=== PATIENT | male | born 1980 | race Caucasian/White ===

== ENCOUNTER → 2023-05-30 | Emergency (ER) | payer SELFPAY ==
--- NOTE | 2023-05-30 07:56 | EDPHYS ---
Physician Documentation [facility] Name: Corby Estevez Age: 42 yrs Sex: Male : 1980 Arrival Date: 05/30/2023 Time: 07:26 Bed DIS3 Private MD: ED Physician Meño Garza HPI: 05/30 07:59 This 42 yrs old Male presents to ER via Ambulatory with complaints of High Blood rt Pressure. 07:59 Patient presents to the ED with hypertension. Patient has been out of his amlodipine rt benazepril close blood pressure elevated. Denies chest pain, shortness of breath. Is requesting a refill. Denies other acute complaints, symptoms are moderate severity, no other aggravating or alleviating factors.. Historical: - Allergies: 07:49 No Known Allergies; jl7 - Home Meds: 07:49 amlodipine-benazepril 10-40 mg oral capsule [Active]; 7 - PMHx: 07:49 Hypertensive disorder; - PSHx: 07:49 None; jl7 - Immunization history:: Adult Immunizations unknown. - Social history:: Smoking status: Patient denies any tobacco usage or history of. - Family history:: not pertinent. ROS: 07:59 Constitutional: Negative for fever, chills, and weight loss, Cardiovascular: Negative rt for chest pain, palpitations, and edema, Respiratory: Negative for shortness of breath, cough, wheezing, and pleuritic chest pain, Abdomen/GI: Negative for abdominal pain, nausea, vomiting, diarrhea, and constipation, Skin: Negative for injury, rash, and discoloration, Neuro: Negative for headache, weakness, numbness, tingling, and seizure, Psych: Negative for depression, anxiety, suicide ideation, homicidal ideation, and hallucinations, Exam: 07:59 Constitutional: This is a well developed, well nourished patient who is awake, alert, rt and in no acute distress. Head/Face: Normocephalic, atraumatic. Chest/axilla: Normal chest wall appearance and motion. Nontender with no deformity. No lesions are appreciated. Cardiovascular: Regular rate and rhythm with a normal S1 and S2. No gallops, murmurs, or rubs. Normal PMI, no JVD. No pulse deficits. Respiratory: Lungs have equal breath sounds bilaterally, clear to auscultation and percussion. No rales, rhonchi or wheezes noted. No increased work of breathing, no retractions or nasal flaring. Abdomen/GI: Soft, non-tender, with normal bowel sounds. No distension or tympany. No guarding or rebound. No evidence of tenderness throughout. Skin: Warm, dry with normal turgor. Normal color with no rashes, no lesions, and no evidence of cellulitis. MS/ Extremity: Pulses equal, no cyanosis. Neurovascular intact. Full, normal range of motion. Neuro: Awake and alert, GCS 15, oriented to person, place, time, and situation. Cranial nerves II-XII grossly intact. Motor strength 5/5 in all extremities. Sensory grossly intact. Cerebellar exam normal. Normal gait. Vital Signs: 07:45 BP 179 / 126; Pulse 83; Resp 15; Temp 97.9; Pulse Ox 100% ; Weight 104.33 kg; Height 5 jl7 ft. 8 in. ; Pain 0/10; 07:45 Body Mass Index 34.97 (104.33 kg, 172.72 cm) jl7 07:45 Pain Scale: Adult jl7 MDM: 07:52 Patient medically screened. rt 07:59 Differential diagnosis: Hypertension. Data reviewed: vital signs, nurses notes. I rt considered the following discharge prescriptions or medication management in the emergency department Offered to give patient medications here, states that he wishes to get back on his regular antihypertensive medicines.. Test considered but Not performed: Other Details Patient has no symptoms currently. No signs of endorgan dysfunction, EKG, labs not indicated. Counseling: I had a detailed discussion with the patient and/or guardian regarding the historical points, exam findings, and any diagnostic results supporting the discharge/admit diagnosis, the need for outpatient follow up, to return to the emergency department if symptoms worsen or persist or if there are any questions or concerns that arise at home. Administered Medications: No medications were administered Disposition Summary: 05/30/23 07:56 Discharge Ordered Notes: Location: Home rt Problem: an ongoing problem rt Symptoms: are unchanged rt Condition: Stable rt Diagnosis - Essential (primary) hypertension rt Followup: rt - With: Crow Levin DO - When: 5 - 6 days - Reason: Discharge Instructions: - Discharge Summary Sheet rt - Hypertension, Adult rt Forms: - Medication Reconciliation Form rt - Thank You Letter rt - Antibiotic Education rt - Prescription Opioid Use rt - Patient Portal Instructions rt - Leadership Thank You Letter rt Prescriptions: - amlodipine-benazepril 10-40 mg Oral capsule - take 1 capsule ORAL route daily; 30 capsule; Refills: 0, Product Selection rt Permitted Signatures: Sherine Jacinto RN RN jl7 Meño Garza MD MD rt Corrections: (The following items were deleted from the chart) 07:50 07:49 Home Meds: None; alin ogden
--- NOTE | 2023-05-30 07:56 | ER ---
Nurse's Notes [facility] Name: Corby Estevez Age: 42 yrs Sex: Male : 1980 Arrival Date: 05/30/2023 Time: 07:26 Bed DIS3 Private MD: Diagnosis: Essential (primary) hypertension Presentation: 05/30 07:45 Chief complaint: Patient states: Ran out of BP meds 1 week ago, Amlodipine-Benazepril jl7 10-40mg, PO Daily and has not been able to get an appointment. Denies dizziness, denies vision problems, reports slight throb in head "I can feel the BP in my head." Denies slurred speech. Requesting a refill and needs a local PCP. Coronavirus screen: At this time, the client does not indicate any symptoms associated with coronavirus-19. Ebola Screen: No symptoms or risks identified at this time. Initial Sepsis Screen: Does the patient meet any 2 criteria? No. Patient's initial sepsis screen is negative. Does the patient have a suspected source of infection? No. Patient's initial sepsis screen is negative. Risk Assessment: Do you want to hurt yourself or someone else? Patient reports no desire to harm self or others. Onset of symptoms is unknown. 07:45 Method Of Arrival: Ambulatory [facility] 07:45 Acuity: ISIAH 3 jl7 Triage Assessment: 07:49 General: Appears in no apparent distress. uncomfortable, Behavior is calm, cooperative, jl7 appropriate for age. Pain: Denies pain. Neuro: Level of Consciousness is awake, alert, obeys commands, Oriented to person, place, time, situation, Speech is normal. Cardiovascular: Patient's skin is warm and dry. Respiratory: Airway is patent Respiratory effort is even, unlabored, Respiratory pattern is regular, symmetrical. Derm: Skin is pink, warm \\T\\ dry. Historical: - Allergies: 07:49 No Known Allergies; jl7 - Home Meds: 07:49 amlodipine-benazepril 10-40 mg oral capsule [Active]; jl7 - PMHx: 07:49 Hypertensive disorder; jl7 - PSHx: 07:49 None; jl7 - Immunization history:: Adult Immunizations unknown. - Social history:: Smoking status: Patient denies any tobacco usage or history of. - Family history:: not pertinent. Screenin:53 [facility] ED Fall Risk Assessment (Adult) Score/Fall Risk Level 0 - 2 = Low Risk jl7 Oriented to surroundings, Maintained a safe environment. Abuse screen: Denies threats or abuse. Denies injuries from another. Nutritional screening: No deficits noted. Tuberculosis screening: No symptoms or risk factors identified. Assessment: 07:53 Reassessment: Dr. Garza at chairside assessing pt. Pt refused medication in ER, jl7 requests just the medication prescription. Vital Signs: 07:45 BP 179 / 126; Pulse 83; Resp 15; Temp 97.9; Pulse Ox 100% ; Weight 104.33 kg; Height 5 jl7 ft. 8 in. ; Pain 0/10; 07:45 Body Mass Index 34.97 (104.33 kg, 172.72 cm) jl7 07:45 Pain Scale: Adult 7 ED Course: 07:29 Patient arrived in ED. ts1 07:29 Meño Garza MD is Attending Physician. rt 07:49 Triage completed. jl7 07:49 Arm band placed on right wrist. jl7 07:53 Patient has correct armband on for positive identification. Provided Education on: jl7 Recording BP to take to PCP. 07:55 Crow Levin DO is Referral Physician. rt 08:03 Sherine Jacinto RN is Primary Nurse. jl7 08:08 No provider procedures requiring assistance completed. Patient did not have IV access jl7 during this emergency room visit. Administered Medications: No medications were administered Medication: 08:03 VIS not applicable for this client. jl7 Outcome: 07:56 Discharge ordered by . rt 08:08 Discharged to home ambulatory, jl7 08:08 Condition: stable 08:08 Discharge instructions given to patient, Instructed on discharge instructions, follow up and referral plans. medication usage, Demonstrated understanding of instructions, follow-up care, medications, Prescriptions given X 1, 08:08 Patient left the ED. jl7 Signatures: Sherine Jacinto RN RN jl7 [place], Ryan, MD MD rt Monica Yo PAS PAS ts1 Corrections: (The following items were deleted from the chart) 07:50 07:49 Home Meds: None; jl7 jl7 08:07 08:03 Reassessment: Dr. Garza at chairside assessing pt. Pt refused medication in jl7 ER, requests just the medication prescription. [facility]
[2023-05-30 08:12] VITALS: BP 179/126; TEMP 97.9; O2SAT 100
== END ==
LOC: ER 07:26
DX: I10 Essential (primary) hypertension (principal)
CPT/HCPCS: 99283